=== PATIENT | female | born 1950 | race Caucasian/White ===

== ENCOUNTER 2024-06-05 12:54 | Emergency (ER) | payer MEDICARE, OTHER, SELFPAY ==
[2024-06-05 13:21] VITALS: BP 126/89
--- NOTE | 2024-06-05 13:22 | ED.GENMED ---
ED Provider Triage
-
Patient seen by provider in Triage?: Seen in Triage
73 yo female w/ hxo f CVA and resultant aphasia presents due to acute onset of dizziness/near syncope. Symptoms now resolved. Episode lasted mere seconds
Currently looks well, baseline mentation
Check labs, CT head
History of Present Illness
General
Chief Complaint: Dizziness
ED Attending Note
-
Portions of this chart may have been created with voice recognition software.� Occasional wrong word or��sound alike� substitutions may have occurred due to the inherent limitations of voice recognition software.
Discharge Plan
Discharge Date and Time
Print Language: ROMANIAN
[2024-06-05 13:54] LABS: % Basophils 0.4 % (0-2); % Eosinophils 1.7 % (0-6); % Immature Granulocytes 0.3 % (0-0.5); % Lymphocytes 25.6 % (20.5-51.1); % Monocytes 8.4 % (1.7-9.3); % Neutrophils 63.6 % (42.2-75.2); Absolute Eosinophils 0.1 10^3/uL (0-0.7); Absolute Lymphocytes 1.8 10^3/uL (1.2-3.4); Absolute Monocytes 0.6 10^3/uL (0.1-0.6); Absolute Neutrophils 4.5 10^3/uL (1.4-6.5); Hematocrit 40.1 % (37.0-47.0); Hemoglobin 13.5 g/dL (12.0-16.0); Mean Corp Hgb Conc. 33.7 g/dL (33.0-37.0); Nucleated Red Blood Cells % 0 %; Platelet Count 245 10^3/uL (130-400); Red Blood Cell Count 4.36 10^6/uL (4.20-5.40); Red Cell Dist. Width 13.6 % (11.5-14.5); White Blood Cell Count 7.1 10^3/uL (4.8-10.8)
[2024-06-05 14:08] LABS: ALT (SGPT) 17 U/L (0-35); Albumin 4.4 g/dl (3.5-5.0); Alkaline Phosphatase 110 U/L (38-126); Blood Urea Nitrogen 17 mg/dl (7-17); Calcium 10.3 mg/dl (8.4-10.2); Carbon Dioxide 30 mmol/L (22-30); Chloride 102 mmol/L (98-107); Glucose 101 mg/dl (70-99); Potassium 3.9 mmol/L (3.5-5.1); Sodium 141 mmol/L (135-145); Total Bilirubin 0.3 mg/dl (0.2-1.3); Total Protein 7.3 g/dl (6.3-8.2); eGFR 58.75
[2024-06-05 14:43] LABS: AST (SGOT) 31 U/L (14-36)
[2024-06-05 16:24] VITALS: BP 154/80
--- NOTE | 2024-06-05 17:02 | ED.GENMED ---
History of Present Illness
General
Chief Complaint: Dizziness
Source: patient
Exam Limitations: none
Time Seen by Provider: 06/05/24 16:45
Nursing documentation reviewed up to this point in time: agreed with
History of Present Illness
History of Present Illness:
The patient is a 73-year-old female the past medical history of stroke and chronic right arm weakness who complains of a brief episode of lightheadedness that lasted about 2 minutes while she was standing in her kitchen making lunch. Patient denies
a feeling of spinning, focal weakness, numbness, vision changes, headache, chest pain or shortness of breath. Patient reports that she did not fall or pass out. Patient reports that she held onto the countertop but then her family sat her down in
a chair. Patient reports she felt better after that. Patient has no symptoms at all at this time
Past History
Past History
ED Past Medical History: CVA and HTN
ED Past Surgical History: Other
Social History
Tobacco: Non-smoker
Alcohol: None
Drug: None
Personal: Other
Living: with family
Employment: Other
Family History
Family History: Other
Review of Systems
Review of Systems
Allergies reviewed?: Yes
All Other Systems: ROS reviewed and negative except as documented in HPI and ROS
Constitutional: Reports no symptoms
EENT: Reports no symptoms
Respiratory: Reports no symptoms
Cardiac: Reports other (Lightheaded)
ABD/GI: Reports no symptoms
: Reports no symptoms
Musculoskeletal: Reports no symptoms
Skin: Reports no symptoms
Neurological: Reports no symptoms
Endocrine: Reports no symptoms
Hematologic/Lymphatic: Reports no symptoms
Psychiatric: Reports no symptoms
Phy Exam
Physical Exam
Physical Exam:
Physical Exam
General: no apparent distress, not acutely ill. Patient appears well and comfortable.
Neck: supple. no meningeal signs. normal psoterior pharynx
Heart: s1/s2 regular rate and rhythm, no murmur. equal radial pulses.
Lungs: no acute respiratory distress. clear bilaterally
Abdomen: normal bowel sounds. not tender. no CVAT
Neuro: alert and orientedx3. no focal neurological deficits. Cranial nerves equal and symmetric bilaterally. Equal sensation bilaterally. 5 out of 5 strength without drift except chronic right arm weakness of many
years. Normal finger-nose
Skin: no rash
Psychiatric: well kept. interactive and cooperative
Extremities: no edema. no calf tenderness. negative homans. good distal pulses. Patient able to get up and walk around without any lightheadedness.
Course
Orders/Labs/Results
Orders:
Orders
06/05/24 13:23
Electrocardiogram (*1) Urgent
Reason for Study: Vertigo / Dizzy
CT Head W/o Iv Contrast Urgent
Comment:
Reason For Exam: dizziness
EKG- Treatment ONCE
06/05/24 13:30
Complete Blood Count/With Diff Urgent
Comprehensive Metabolic Panel Urgent
Abnormal Lab Results
06/05/24
13:30
Glucose 101 H mg/dl
(70-99)
Calcium 10.3 H mg/dl
(8.4-10.2)
06/05/24 13:30
06/05/24 13:30
Vital Signs
Initial and Last Documented VS:
Initial Vital Signs
Temp Pulse Resp BP Pulse Ox
97.9 F 81 20 126/89 98
06/05/24 13:21 06/05/24 13:21 06/05/24 13:21 06/05/24 13:21 06/05/24 13:21
Last Documented Vital Signs
Temp Pulse Resp BP Pulse Ox
97.9 F 85 18 154/80 98
06/05/24 13:21 06/05/24 16:24 06/05/24 16:24 06/05/24 16:24 06/05/24 16:24
MDM/Problems Addressed
Differential Diagnosis Includes:
Transient hypotension, cardiac arrhythmia, acute anemia
MDM/Problems Addressed:
Patient presents with acute lightheadedness which is now resolved completely
Chronic conditions affecting care: HTN
Acute Exacerbation and/or Progression of Chronic Illness:
Given patient has a history of hypertension, her antihypertensive medication could have caused an episode of lightheadedness. Patient does report that she has been on blood pressure medicine for 6 months, amlodipine 2.5 mg, and this has not been
changed recently
Acute Exacerbation and/or Progression of Chronic Illness: HTN
*Pulse Oximetry
Patient hypoxic: no
*EKG
Interpreted by ED Provider?: Yes
Interpretation: normal
Comparison EKG: no comparison EKG present
Rate: normal
Rhythm: sinus
[place]: left axis deviation
Interval: normal interval
QRS Pattern: normal QRS
Ischemia: no ischemia
*Needle Setter Interpretation
Rate: normal
Interpretation: normal
Rhythm: sinus
*Critical Care Note
Total Time (30-74mins, 75-104mins- exclusive of procedures): Not Applicable
Data Reviewed
Source: patient and family
Patient Management
Social determinants of health affecting care: Living situation and Strong social support
Escalation/DeEscalation of care consider admission/obs:
Patient up walking around without any lightheadedness. EKG shows no cardiac arrhythmia. Heart sounds regular on cardiac exam. Neurological exam is nonfocal with the exception of her chronic right arm weakness. I feel patient could go home.
Patient encouraged to drink fluids and eat high protein meal. Patient encouraged to return with any vision changes, new weakness, numbness, or further lightheadedness. I also left a message with the PCP request [place] text so that patient can get a
PCP
ED Attending Note
-
Portions of this chart may have been created with voice recognition software.� Occasional wrong word or��sound alike� substitutions may have occurred due to the inherent limitations of voice recognition software.
Discharge Plan
Departure
Patient Disposition: Home (Routine Discharge)
Date of Disposition: 06/05/24
Time of Disposition: 17:17
Patient with high blood pressure during this ER visit?: Yes
Condition: Good
Covid-19: Not Applicable
Discharge Problem:
Dizziness
Instructions: Dizziness, BLOOD PRESSURE
Activity Restrictions/Additional Instructions:
Drink lots of fluids and have a high protein meal today. If you feel lightheaded, please sit down immediately and elevate your legs. Return with any chest pain, palpitations, shortness of breath, vision changes, or new weakness or numbness
We have sent a message for someone to contact you about having a primary care doctor
Interventions
Interventions:
*Risk Screen - Suicide Last Done: 06/05/24 13:21
*General Assessment Last Done: 06/05/24 13:21
*Neglect/Abuse Screening Last Done: 06/05/24 13:21
*ED COVID-19 Vaccine History Last Done: 06/05/24 16:20
ED- Neurological Assessment Last Done: 06/05/24 16:25
Discharge Date and Time
Print Language: [place]
== END 2024-06-05 18:24 | disposition home or self-care (01) ==
LOC: EMR 12:54
PROVIDERS: Physician Assistant; EMERGENCY PHYSICIAN Emergency Medicine
DX: R42 Dizziness and giddiness (principal); I10 Essential (primary) hypertension; Z86.73 Personal history of transient ischemic attack (TIA), and cerebral infarction without residual deficits
CPT/HCPCS: 99285; 70450; 80053; 85025; 93005

== ENCOUNTER → 2024-09-23 11:15 | Outpatient (REF) | payer MEDICARE, OTHER, SELFPAY | LOC: RAD 11:15 | PROVIDERS: ATTENDING PHYSICIAN Family Medicine | DX: I65.23 Occlusion and stenosis of bilateral carotid arteries (principal) | CPT/HCPCS: 93880 ==

== ENCOUNTER → 2024-11-02 12:59 | Outpatient (REF) | payer MEDICARE, OTHER, SELFPAY | LOC: PAVMRI 12:59 | PROVIDERS: ATTENDING PHYSICIAN Family Medicine | DX: I65.23 Occlusion and stenosis of bilateral carotid arteries (principal); R42 Dizziness and giddiness; Z86.73 Personal history of transient ischemic attack (TIA), and cerebral infarction without residual deficits | CPT/HCPCS: 70544 ==